=== PATIENT | female | born 1985 | race Caucasian/White ===

== ENCOUNTER 2020-06-23 15:32 | Emergency (ER) | payer MEDICAID, OTHER ==
[2020-06-23] MEDS ORDERED: KETOROLAC TROMETHAMINE 30MG/ML ONE (15:56)
[2020-06-23] MEDS ORDERED: ORPHENADRINE CITRATE 30 MG/ML ML ONE (15:56)
== END 2020-06-23 16:20 | disposition home or self-care (01) ==
LOC: EDH 15:32
DX: T14.8XXA Other injury of unspecified body region, initial encounter (principal); M54.6 Pain in thoracic spine; J45.909 Unspecified asthma, uncomplicated; Z98.890 Other specified postprocedural states; Z72.0 Tobacco use; X58.XXXA Exposure to other specified factors, initial encounter; Y93.89 Activity, other specified; Y92.89 Other specified places as the place of occurrence of the external cause; Y99.8 Other external cause status
CPT/HCPCS: 96372 ×2; 99284; J1885; J2360

== ENCOUNTER 2022-03-28 18:25 | Emergency (ER) | payer OTHER ==
[~2022-03-28] VITALS: Ht 147.3 cm; Wt 77.1 kg
[2022-03-28 19:37] VITALS: BP 106/52
[2022-03-28 20:33] LABS: BASOPHILS % (AUTO) 0.5 % (0.0-5.0); EOSINOPHILS % (AUTO) 2.8 % (0.0-8.0); HEMATOCRIT 39.5 % (36-48); LYMPHOCYTES % (AUTO) 12.6 % (21.0-51.0); MEAN CORPUSCULAR HEMOGLOBIN 27.3 pg (27.0-33.0); MEAN CORPUSCULAR HGB CONC 32.2 g/dL (32.0-36.0); MEAN CORPUSCULAR VOLUME 84.8 fL (79-99); MONOCYTES % (AUTO) 10.3 % (3.0-13.0); NEUTROPHILS % (AUTO) 73.3 % (40.0-77.0); PLATELET COUNT (AUTO) 235 K/uL (130-400); RED BLOOD CELL COUNT(AUTO) 4.66 MIL/uL (4.00-5.50); RED CELL DISTRIBUTION WIDTH 14.8 % (11.0-15.5); WHITE BLOOD COUNT (AUTO) 8.6 K/uL (4.8-10.8)
[2022-03-28 20:40] LABS: APPEARANCE,URINE CLEAR (CLEAR); BILIRUBIN,URINE NEGATIVE (NEGATIVE); COLOR,URINE LIGHT-YELLOW (YELLOW); GLUCOSE, URINE (UA) NEGATIVE (NEGATIVE); KETONES,URINE NEGATIVE (NEGATIVE); LEUKOCYTE ESTERASE ,URINE NEGATIVE Leu/uL (NEGATIVE); NITRATE,URINE NEGATIVE (NEGATIVE); OCCULT BLOOD,URINE NEGATIVE (NEGATIVE); PH,URINE 5.5 (5.0-8.0); PROTEIN,URINE NEGATIVE (NEGATIVE); UROBILINOGEN,URINE 0.2 mg/dL (0.2-1.0)
[2022-03-28] MEDS ORDERED: 0.9%NACL 1000ML 1,000 ML IV SCH (21:00)
[2022-03-28] MEDS ORDERED: KETOROLAC 15MG/ML VIAL (15MG/ML) IV SCH (21:00)
[2022-03-28] MEDS ORDERED: ONDANSETRON 4MG INJ IVP SCH (21:00)
[2022-03-28] MEDS ORDERED: CEFTRIAXONE 1G VIAL IVP SCH (21:00)
[2022-03-28 21:08] LABS: ALBUMIN 3.6 g/dL (3.5-5.0); CREATININE 0.8 mg/dL (0.5-1.5); POTASSIUM 3.8 mmol/L (3.5-5.1); TOTAL PROTEIN, SERUM 7.7 g/dL (6.0-8.3)
[2022-03-28] MEDS ORDERED: IOHEXOL 350 MG/ML 100ML INFUS..BTL IV ONE (21:33)
== END 2022-03-28 23:01 | disposition home or self-care (01) ==
LOC: EDH 18:25
DX: B34.9 Viral infection, unspecified (principal); Z20.822 Contact with and (suspected) exposure to COVID-19; J45.909 Unspecified asthma, uncomplicated
CPT/HCPCS: 99285; 74177; 96374; 96361; 96375; 87635; 80053; 84703; 85025; 87040 ×2; 87804 ×2; 83605; 81003; 36415; C9803; J7030; J0696; J2405; J1885; Q9967